=== PATIENT | male | born 1950 | race Caucasian/White ===

== ENCOUNTER 2025-01-11 00:03 | Emergency (ER) | payer MEDICARE ==
[~2025-01-11] VITALS: Ht 182.9 cm; Wt 91.6 kg
== END 2025-01-11 01:06 | disposition home or self-care (01) ==
LOC: ER 00:03
DX: T82.838A Hemorrhage due to vascular prosthetic devices, implants and grafts, initial encounter (principal)
CPT/HCPCS: 71045; 99283-25

== ENCOUNTER 2025-01-17 06:16 | Emergency (ER) | payer MEDICARE ==
[~2025-01-17] VITALS: Ht 182.9 cm; Wt 93.4 kg
== END 2025-01-17 10:56 | disposition home or self-care (01) ==
LOC: ER 06:16
DX: T82.898A Other specified complication of vascular prosthetic devices, implants and grafts, initial encounter (principal); R60.0 Localized edema; J44.9 Chronic obstructive pulmonary disease, unspecified; K21.9 Gastro-esophageal reflux disease without esophagitis; E78.5 Hyperlipidemia, unspecified; E03.9 Hypothyroidism, unspecified; Z79.82 Long term (current) use of aspirin; Z79.51 Long term (current) use of inhaled steroids; Z79.899 Other long term (current) drug therapy
CPT/HCPCS: 93971; 99284-25

== ENCOUNTER 2025-01-20 00:07 | Emergency (ER) | payer MEDICARE ==
[~2025-01-20] VITALS: Ht 182.9 cm; Wt 104.3 kg
== END 2025-01-20 07:08 | disposition home or self-care (01) ==
LOC: ER 00:07
DX: S00.83XA Contusion of other part of head, initial encounter (principal); W18.30XA Fall on same level, unspecified, initial encounter; J44.9 Chronic obstructive pulmonary disease, unspecified; I10 Essential (primary) hypertension; E03.9 Hypothyroidism, unspecified; E78.5 Hyperlipidemia, unspecified; I48.91 Unspecified atrial fibrillation
CPT/HCPCS: 70450; 99284-25

== ENCOUNTER 2025-02-06 14:10 | Emergency (ER) | payer MEDICARE ==
[~2025-02-06] VITALS: Ht 182.9 cm; Wt 90.7 kg
[2025-02-06 17:15] LABS: BASOPHILS ABSOLUTE AUTO 0.07 K/mm3 (0.00-0.23); BASOPHILS PERCENT AUTO 1 % (0-2); EOSINOPHILS ABSOLUTE AUTO 1.42 K/mm3 (0.00-0.68); EOSINOPHILS PERCENT AUTO 13 % (0-6); Hematocrit 22.5 % (37.0-53.0); Hemoglobin 7.2 g/dL (13.5-17.5); IMMATURE GRAN ABSOLUTE AUTO 0.03 K/mm3 (0.00-0.10); IMMATURE GRAN PERCENT AUTO 0 % (0-1); LYMPHOCYTES ABSOLUTE AUTO 2.28 K/mm3 (0.84-5.20); LYMPHOCYTES PERCENT AUTO 20 % (21-46); MONOCYTES ABSOLUTE AUTO 2.27 K/mm3 (0.16-1.47); MONOCYTES PERCENT AUTO 20 % (4-13); Mean Corpuscular HGB 25.8 pg (26.0-34.0); Mean Corpuscular Volume 81 fL (80-100); Mean Platelet Volume 11.9 fL (9.1-12.4); NEUTROPHILS ABSOLUTE AUTO 5.33 K/mm3 (1.96-9.15); NEUTROPHILS PERCENT AUTO 47 % (41-73); Platelet Count 171 K/mm3 (150-400); RDW Coefficient Variation 21.2 % (11.7-14.2); RDW Standard Deviation 62.3 fL (35.1-46.3); Red Blood Cell Count 2.79 M/mm3 (4.30-5.90)
[2025-02-06 17:38] LABS: International Normalized Ratio 1.12; Prothrombin Time Results 11.9 Sec (9.7-11.5)
[2025-02-06 17:59] LABS: Albumin, Blood 2.9 g/dL (3.4-5.0); Bilirubin, Total 0.7 mg/dL (0.1-1.0); Bun/Creatinine Ratio 12.6 (12.0-20.0); Calcium, Blood 8.6 mg/dL (8.5-10.1); Creatinine, Blood 1.67 mg/dL (0.60-1.20); Globulin, Blood 2.9 g/dL (2.2-4.0); Potassium, Blood 4.4 mmol/L (3.5-5.5); Total Protein, Blood 5.8 g/dL (6.4-8.2)
[2025-02-06] MEDS ORDERED: NS 1,000 ML IV SCH (19:50)
[2025-02-06] MEDS ORDERED: Acetaminophen325 M1 PO (21:33)
[2025-02-06] MEDS ORDERED: ALBU90OI INH (21:34)
[2025-02-06] MEDS ORDERED: ELIQUIS5 M2 PO (21:34)
[2025-02-06] MEDS ORDERED: Aspir 8181 MG PO (21:35)
[2025-02-06] MEDS ORDERED: CULTURELLE ADV1 EACH (21:35)
[2025-02-06] MEDS ORDERED: Pulmicort Fle180 MCG INH (21:35)
[2025-02-06] MEDS ORDERED: BISA10S PR (21:35)
[2025-02-06] MEDS ORDERED: IPRAT-ALBUT 0.5-3 ML INH (21:36)
[2025-02-06] MEDS ORDERED: LOPE2C PO (21:37)
[2025-02-06] MEDS ORDERED: LOSA25 PO (21:37)
[2025-02-06] MEDS ORDERED: EUTHYROX50 MCG PO (21:37)
[2025-02-06] MEDS ORDERED: MELA3 PO (21:38)
[2025-02-06] MEDS ORDERED: OMEP20ER PO (21:38)
[2025-02-06] MEDS ORDERED: METO50ER PO (21:38)
[2025-02-06] MEDS ORDERED: OXYC5 PO (21:40)
[2025-02-06] MEDS ORDERED: ONDA4ODT MM (21:40)
[2025-02-06] MEDS ORDERED: POTA20PAC PO (21:41)
[2025-02-06] MEDS ORDERED: SENN187 PO (21:41)
[2025-02-06] MEDS ORDERED: SERT50 PO (21:41)
[2025-02-06] MEDS ORDERED: TRIDERM28.4 GM TOP (21:42)
[2025-02-14] MEDS ORDERED: FURO20 PO (09:42)
[2025-02-14] MEDS ORDERED: MIRALAX17 GM PO (09:45)
[2025-02-14] MEDS ORDERED: SODPOL15SA PO (09:47)
== END 2025-02-07 00:39 | disposition home or self-care (01) ==
LOC: ER 14:10
PROVIDERS: Student in an Organized Health Care Education/Training Program
DX: D64.9 Anemia, unspecified (principal); N17.9 Acute kidney failure, unspecified; K21.9 Gastro-esophageal reflux disease without esophagitis; J44.9 Chronic obstructive pulmonary disease, unspecified; E03.9 Hypothyroidism, unspecified; E78.5 Hyperlipidemia, unspecified; I10 Essential (primary) hypertension; I48.91 Unspecified atrial fibrillation
CPT/HCPCS: 36430; 80053; 85025; 85610; 85730; 86850; 86900; 86901; 86923; 99284; J7030; P9016